=== PATIENT | female | born 1935 | race Caucasian/White ===

== ENCOUNTER 2017-02-11 16:24 | Emergency (ER) | payer MEDICARE ==
[2017-02-11] MEDS ORDERED: Morphine 4 MG/ML VIAL ONE (17:35)
[2017-02-11 17:39] LABS: #Eosinphils 0.1 thou/uL (0.0-0.7); #Lymphocytes 1.7 thou/uL (1.20-3.40); #Monocytes 0.7 thou/uL (0.11-0.59); #Neutrophils 9.4 thou/uL (1.40-6.50); %Basophils 0.2 % (0.0-1.0); %Eosinophils 0.5 % (0.0-10.0); %Lymphocytes 14.2 % (21.0-51.0); %Monocytes 5.6 % (0.0-10.0); Hematocrit 39.9 % (36.0-47.0); Mean Platelet Volume 7.6 fL (7.4-10.4); Red Blood Cell (RBC) Count 3.97 mill/uL (4.20-5.40); White Blood Cell (WBC) Count 11.9 thou/uL (4.8-10.8)
[2017-02-11 18:00] LABS: Anion Gap 17 mmol/L (10-20); BUN (Urea Nitrogen) 24 mg/dL (9.8-20.1); CK (CPK) 93 U/L (29-168); Calc. Creatinine Clearance 0 mL/min (70-130); Calcium 9.8 mg/dL (7.8-10.44); Carbon Dioxide 20 mmol/L (23-31); Chloride 106 mmol/L (98-107); Estimated GFR-MDRD 57
--- NOTE | 2017-02-11 18:35 | RAD ---
RADIOGRAPH RIGHT SHOULDER TWO VIEWS: Date: 02-11-17 Time: 5:24 p.m. History: 81-year-old female status post acute right shoulder trauma from fall. FINDINGS: There is a minimally/mildly displaced fracture of the lateral aspect of the humeral head. There is no dislocation. The right clavicle is intact. There are changes within the thoracic cavity suggestive o f congestive heart failure, including pulmonary vascular engorgement, probable pulmonary edema and ri ght pleural effusion, incompletely evaluated. No dislocation. IMPRESSION: 1. Acute, traumatic, mildly displaced, closed, right humeral head fracture. 2. Congestive heart failure. POS: [facility]
--- NOTE | 2017-02-11 18:45 | CT ---
CT BRAIN NONCONTRAST: HISTORY: 81 year old female status post acute head trauma from fall. FINDINGS: There is no midline shift or any other mass effect. There is no evidence of acute intracranial hemor rhage, large cortical infarct, obstructive hydrocephalus, or extraaxial fluid collection. The calvar ium is intact. There is diffuse parenchymal volume loss. There are low attenuation areas in the whi te matter. These are nonspecific, but in a patient of this age, they are probably chronic ischemic w melvin matter changes due to microvascular atherosclerosis. There is a focal dense superficial soft tis reba swelling of the right frontal scalp. There is a right wall-up mastoidectomy surgical defect. IMPRESSION: 1) No acute intracranial findings. 2) Involutional changes and chronic ischemic white matter changes. 3) Acute, traumatic right frontal scalp contusion. 4) Status post right-sided intact canal wall mastoidectomy. [email or web address] POS: [facility]
== END 2017-02-11 19:12 | disposition home or self-care (01) ==
LOC: ERS 16:24
DX: S42.291A Other displaced fracture of upper end of right humerus, initial encounter for closed fracture (principal); E11.9 Type 2 diabetes mellitus without complications; E03.9 Hypothyroidism, unspecified; M19.90 Unspecified osteoarthritis, unspecified site; Z79.84 Long term (current) use of oral hypoglycemic drugs; Z79.899 Other long term (current) drug therapy; W01.10XA Fall on same level from slipping, tripping and stumbling with subsequent striking against unspecified object, initial encounter
CPT/HCPCS: 70450; 80048; 82550; 85025; 96374; J2270

== ENCOUNTER 2020-07-18 13:34 | Inpatient (IN) | payer MEDICARE ==
[~2020-07-18 13:34] MED LIST: Heparin 1,000 UNITS/ML VIAL ONE
[2020-07-18 14:16] LABS: Hemoglobin 11.4 g/dL (12.0-16.0); Mean Corpuscular HGB CONC 34.1 g/dL (32.0-36.0); Mean Corpuscular Hemoglobin 33.3 pg (27.0-31.0); Mean Corpuscular Volume 97.5 fL (78.0-98.0); Mean Platelet Volume 7.8 fL (7.4-10.4); Platelet Count 612 thou/uL (130-400); RBC Distribution Width 13.9 % (11.5-14.5); Red Blood Cell (RBC) Count 3.43 mill/uL (4.20-5.40); White Blood Cell (WBC) Count 28.4 thou/uL (4.8-10.8)
[2020-07-18 14:35] LABS: Bacteria/HPF 4+ HPF (None Seen); Bilirubin Negative (Negative); Blood, Urine 2+ (Negative); Glucose, Urine (Dipstick) Normal (Negative); Ketone, Urine Negative (Negative); Leukocyte 500 Leu/uL (Negative); Nitrite Negative (Negative); Protein, Urine (Dipstick) 50 mg/dL (Neg-Trace); Specific Gravity, Urine 1.025 (1.002-1.036); WBC/HPF 21-50 HPF (0-3); pH, Urine 5.5 (5.0-9.0)
[2020-07-18 14:36] LABS: ALT (SGPT) 78 U/L (8-55); AST (SGOT) 170 U/L (5-34); Albumin 2.8 g/dL (3.4-4.8); Alkaline Phosphatase 160 U/L (40-110); Anion Gap 21 mmol/L (10-20); BUN (Urea Nitrogen) 47 mg/dL (9.8-20.1); Bilirubin, Total 1.7 mg/dL (0.2-1.2); CK (CPK) 3451 U/L (29-168); Calc. Creatinine Clearance 0 mL/min (70-130); Calcium 8.8 mg/dL (7.8-10.44); Carbon Dioxide 16 mmol/L (23-31); Chloride 105 mmol/L (98-107); Globulin 5.3 g/dL (2.4-3.5); Glucose 97 mg/dL (83-110); Lipase 40 U/L (8-78); Magnesium 1.3 mg/dL (1.6-2.6); Potassium 4.1 mmol/L (3.5-5.1); Protein, Total 8.1 g/dL (5.8-8.1); Sodium 138 mmol/L (136-145)
[2020-07-18 14:39] LABS: Band 39 % (5-11); Lymphocytes 3 % (21-51); MDiff Complete? YES; Monocytes 4 % (0-10); Neutrophil 54 % (42-75)
[2020-07-18 14:49] LABS: Clarity Turbid (Clear); Renal Epithelial 0-3 HPF (None Seen); Transitional Epithelial 0-3 HPF (None Seen)
[2020-07-18 15:02] LABS: CKMB 40.3 ng/mL (0-6.6)
[2020-07-18] MEDS ORDERED: Cefepime 2 GM VIAL ONE (15:24)
[2020-07-18] MEDS ORDERED: Magnesium 2 GM/50 ML BAG (IN WATER) ONE (15:24)
[2020-07-18] MEDS ORDERED: Vancomycin 1 GM/200 ML BAG ONE (16:07)
[2020-07-18 17:42] LABS: Troponin I 0.021 ng/mL (< 0.028)
[2020-07-18] MEDS ORDERED: Metoprolol Tartrate 5 MG/5 ML VIAL IVP PRN (17:44)
[2020-07-18] MEDS ORDERED: Dextrose 50% Abboject 50 ML SYRINGE SLOW IVP PRN (17:52)
[2020-07-18] MEDS ORDERED: Dextrose 5% in Water 1,000 ML IV PRN (17:52)
[2020-07-18 18:36] LABS: SARS-CoV-2 NAA Rapid Test Not Detected (NotDetected)
[2020-07-18] MEDS: Dextrose 5 % And 0.9 % NaCl 1,000 ML IV SCH (20:28)
[2020-07-18] MEDS: Piperacillin/Tazobactam 2.25 GM in Sodium Chloride 0.9% 100 ML IVPB SCH (20:28)
[2020-07-18 21:48] LABS: Anion Gap 19 mmol/L (10-20); BUN (Urea Nitrogen) 46 mg/dL (9.8-20.1); CK (CPK) 2348 U/L (29-168); Calc. Creatinine Clearance 28 mL/min (70-130); Calcium 7.8 mg/dL (7.8-10.44); Carbon Dioxide 14 mmol/L (23-31); Chloride 109 mmol/L (98-107); Glucose 108 mg/dL (83-110); Magnesium 1.8 mg/dL (1.6-2.6); Potassium 3.6 mmol/L (3.5-5.1); Sodium 138 mmol/L (136-145)
[2020-07-18 22:08] LABS: Hemoglobin 9.8 g/dL (12.0-16.0); Mean Corpuscular HGB CONC 33.7 g/dL (32.0-36.0); Mean Corpuscular Hemoglobin 32.9 pg (27.0-31.0); Mean Corpuscular Volume 97.5 fL (78.0-98.0); RBC Distribution Width 13.9 % (11.5-14.5); Red Blood Cell (RBC) Count 2.97 mill/uL (4.20-5.40)
[2020-07-18 22:31] LABS: Band 27 % (5-11); Lymphocytes 8 % (21-51); MDiff Complete? YES; Mean Platelet Volume 7.4 fL (7.4-10.4); Myelocyte 1 % (0-0); Neutrophil 64 % (42-75); Platelet Count 532 thou/uL (130-400); White Blood Cell (WBC) Count 26.2 thou/uL (4.8-10.8)
[2020-07-18 22:56] LABS: Troponin I 0.019 ng/mL (< 0.028)
[2020-07-19] MEDS: Piperacillin/Tazobactam 2.25 GM in Sodium Chloride 0.9% 100 ML IVPB SCH ×4 (02:40→20:25)
[2020-07-19] MEDS: Morphine 2 MG/ML VIAL SLOW IVP PRN (02:49)
[2020-07-19 04:08] LABS: INR-International Normal Ratio 1.3; PTT 42.9 sec (22.9-36.1); Prothrombin Time 16.1 sec (12.0-14.7)
[2020-07-19 04:21] LABS: ALT (SGPT) 63 U/L (8-55); AST (SGOT) 122 U/L (5-34); Albumin 2.3 g/dL (3.4-4.8); Alkaline Phosphatase 135 U/L (40-110); Anion Gap 14 mmol/L (10-20); BUN (Urea Nitrogen) 45 mg/dL (9.8-20.1); Bilirubin, Total 1.4 mg/dL (0.2-1.2); CK (CPK) 1914 U/L (29-168); Calc. Creatinine Clearance 30 mL/min (70-130); Calcium 8.1 mg/dL (7.8-10.44); Carbon Dioxide 16 mmol/L (23-31); Chloride 113 mmol/L (98-107); Globulin 4.2 g/dL (2.4-3.5); Glucose 120 mg/dL (83-110); Potassium 3.3 mmol/L (3.5-5.1); Protein, Total 6.5 g/dL (5.8-8.1); Sodium 140 mmol/L (136-145)
[2020-07-19 05:37] LABS: Band 22 % (5-11); Hemoglobin 9.9 g/dL (12.0-16.0); Lymphocytes 11 % (21-51); MDiff Complete? YES; Mean Corpuscular HGB CONC 32.6 g/dL (32.0-36.0); Mean Corpuscular Hemoglobin 31.8 pg (27.0-31.0); Mean Corpuscular Volume 97.6 fL (78.0-98.0); Mean Platelet Volume 7.5 fL (7.4-10.4); Monocytes 1 % (0-10); Neutrophil 66 % (42-75); Platelet Count 541 thou/uL (130-400); RBC Distribution Width 13.9 % (11.5-14.5); Red Blood Cell (RBC) Count 3.12 mill/uL (4.20-5.40)
[2020-07-19] MEDS: Dextrose 5 % And 0.9 % NaCl 1,000 ML IV SCH ×3 (05:37→22:33)
[2020-07-19] MEDS ORDERED: Midazolam HCl 2 mg/2 ml Vial ONE (09:07)
[2020-07-19] MEDS ORDERED: Fentanyl 100 MCG/2 ML VIAL ONE (09:07)
[2020-07-19] MEDS ORDERED: Sodium Bicarbonate 2.5 MEQ/5 ML VIAL ONE (09:07)
[2020-07-19 13:31] LABS: Body Fluid Source Abscess Fluid
[2020-07-19 13:32] LABS: BF Color Yellow; Clarity Cloudy/Turbid (Clear); Tube # EDTA
[2020-07-19 14:05] LABS: Cell Count Non Hematic 37 %; Lymphocytes 20 %
[2020-07-19] MEDS: HumaLOG 300 UNITS/3 ML VIAL SC PRN (17:17)
[2020-07-19] MEDS ORDERED: Digoxin 0.5 MG/2 ML AMP SLOW IVP SCH ×2 (17:45)
[2020-07-19] MEDS: Sodium Chloride 0.9% 1,000 ML IV SCH (18:16)
[2020-07-19] MEDS: Heparin 5,000 UNITS/ML VIAL SC SCH (20:26)
[2020-07-19 21:01] LABS: Hemoglobin A1c 4.9 % (4.0-6.0)
[2020-07-19 21:10] LABS: Segmented Neutrophils 43 %
[2020-07-20] MEDS: Sodium Chloride 0.9% 1,000 ML IV SCH ×4 (01:47→21:34)
[2020-07-20] MEDS: Piperacillin/Tazobactam 2.25 GM in Sodium Chloride 0.9% 100 ML IVPB SCH ×4 (01:50→20:17)
[2020-07-20 04:38] LABS: Anion Gap 13 mmol/L (10-20); BUN (Urea Nitrogen) 42 mg/dL (9.8-20.1); CK (CPK) 1134 U/L (29-168); Calc. Creatinine Clearance 36 mL/min (70-130); Calcium 7.6 mg/dL (7.8-10.44); Carbon Dioxide 16 mmol/L (23-31); Chloride 115 mmol/L (98-107); Glucose 162 mg/dL (83-110); Potassium 3.4 mmol/L (3.5-5.1); Sodium 141 mmol/L (136-145)
[2020-07-20 04:39] LABS: ALT (SGPT) 58 U/L (8-55); AST (SGOT) 83 U/L (5-34); Albumin 2.1 g/dL (3.4-4.8); Alkaline Phosphatase 119 U/L (40-110); Bilirubin, Direct 0.8 mg/dL (0.1-0.3); Bilirubin, Total 0.9 mg/dL (0.2-1.2); Protein, Total 5.8 g/dL (5.8-8.1)
[2020-07-20 04:47] LABS: Band 11 % (5-11); Eosinophils 1 % (0-10); Hemoglobin 8.8 g/dL (12.0-16.0); Lymphocytes 5 % (21-51); MDiff Complete? YES; Mean Corpuscular HGB CONC 33.2 g/dL (32.0-36.0); Mean Corpuscular Hemoglobin 32.6 pg (27.0-31.0); Mean Corpuscular Volume 98.1 fL (78.0-98.0); Mean Platelet Volume 7.5 fL (7.4-10.4); Monocytes 5 % (0-10); Myelocyte 1 % (0-0); Neutrophil 77 % (42-75); Platelet Count 496 thou/uL (130-400); RBC Distribution Width 14.1 % (11.5-14.5); Red Blood Cell (RBC) Count 2.71 mill/uL (4.20-5.40); White Blood Cell (WBC) Count 16.9 thou/uL (4.8-10.8)
[2020-07-20] MEDS: Digoxin 0.5 MG/2 ML AMP SLOW IVP SCH ×3 (05:55→16:13)
[2020-07-20] MEDS ORDERED: Potassium Chloride 40 MEQ in Sodium Chloride 0.9% 250 ML 250 ML IVPB SCH (08:15)
[2020-07-20] MEDS: Heparin 5,000 UNITS/ML VIAL SC SCH ×3 (10:31→20:22)
[2020-07-20] MEDS: Dextrose 5 % And 0.9 % NaCl 1,000 ML IV SCH (16:11)
[2020-07-20] MEDS: Atorvastatin Calcium 40 MG TAB PO SCH (20:21)
[2020-07-20] MEDS: Metoprolol Tartrate 50 MG TAB PO SCH (20:21)
[2020-07-21] MEDS: Piperacillin/Tazobactam 2.25 GM in Sodium Chloride 0.9% 100 ML IVPB SCH ×4 (02:10→20:05)
[2020-07-21] MEDS: Sodium Chloride 0.9% 1,000 ML IV SCH ×5 (03:20→15:50)
[2020-07-21 03:48] LABS: ALT (SGPT) 66 U/L (8-55); AST (SGOT) 96 U/L (5-34); Albumin 2.1 g/dL (3.4-4.8); Alkaline Phosphatase 118 U/L (40-110); Anion Gap 12 mmol/L (10-20); BUN (Urea Nitrogen) 36 mg/dL (9.8-20.1); Bilirubin, Direct 0.7 mg/dL (0.1-0.3); Bilirubin, Total 0.9 mg/dL (0.2-1.2); CK (CPK) 1491 U/L (29-168); Calc. Creatinine Clearance 46 mL/min (70-130); Calcium 7.9 mg/dL (7.8-10.44); Carbon Dioxide 15 mmol/L (23-31); Cardiac Risk 5.4 (Less than 4.5); Chloride 118 mmol/L (98-107); Cholesterol 91 mg/dl (< 200 Desired); Glucose 113 mg/dL (83-110); HDL Cholesterol 17 mg/dL (>60 Neg Risk); LDL Cholesterol, Calculated 36 mg/dL; Potassium 4.2 mmol/L (3.5-5.1); Protein, Total 5.8 g/dL (5.8-8.1); Sodium 141 mmol/L (136-145); Triglycerides 192 mg/dL (Less than 150)
[2020-07-21 04:00] LABS: Band 11 % (5-11); Hemoglobin 9.5 g/dL (12.0-16.0); Lymphocytes 11 % (21-51); MDiff Complete? YES; Mean Corpuscular HGB CONC 33.3 g/dL (32.0-36.0); Mean Corpuscular Hemoglobin 32.7 pg (27.0-31.0); Mean Corpuscular Volume 98.2 fL (78.0-98.0); Mean Platelet Volume 7.6 fL (7.4-10.4); Monocytes 4 % (0-10); Myelocyte 1 % (0-0); Neutrophil 73 % (42-75); Nucleated RBC 2 % (0); Platelet Count 504 thou/uL (130-400); RBC Distribution Width 14.2 % (11.5-14.5); Red Blood Cell (RBC) Count 2.91 mill/uL (4.20-5.40); White Blood Cell (WBC) Count 14.8 thou/uL (4.8-10.8)
[2020-07-21] MEDS: Levothyroxine Sodium 75 MCG TAB PO SCH (06:36)
[2020-07-21] MEDS: Losartan 25 MG TAB PO SCH (09:04)
[2020-07-21] MEDS: Digoxin 0.125 MG TAB PO SCH (09:04)
[2020-07-21] MEDS: Saccharomyces boulardii 250 MG CAP PO SCH (09:05)
[2020-07-21] MEDS: Metoprolol Tartrate 50 MG TAB PO SCH ×2 (09:05→20:06)
[2020-07-21] MEDS: Gemfibrozil 600 MG TAB PO SCH (09:05)
[2020-07-21] MEDS: Heparin 5,000 UNITS/ML VIAL SC SCH ×3 (09:05→20:06)
[2020-07-21] MEDS: Aspirin 325 MG TAB PO SCH (09:05)
[2020-07-21] MEDS: Sodium Chloride 0.45% 1,000 ML IV SCH (17:30)
[2020-07-21] MEDS: Atorvastatin Calcium 40 MG TAB PO SCH (20:05)
[2020-07-22] MEDS: Piperacillin/Tazobactam 2.25 GM in Sodium Chloride 0.9% 100 ML IVPB SCH ×2 (02:01→08:10)
[2020-07-22] MEDS: Sodium Chloride 0.45% 1,000 ML IV SCH ×3 (02:01→18:42)
[2020-07-22] MEDS: Levothyroxine Sodium 75 MCG TAB PO SCH (05:36)
[2020-07-22 06:43] LABS: Digoxin 1.04 ng/mL (0.8-2.0)
[2020-07-22 06:46] LABS: Anion Gap 13 mmol/L (10-20); BUN (Urea Nitrogen) 26 mg/dL (9.8-20.1); CK (CPK) 1188 U/L (29-168); Calc. Creatinine Clearance 62 mL/min (70-130); Carbon Dioxide 13 mmol/L (23-31); Chloride 117 mmol/L (98-107); Glucose 108 mg/dL (83-110); Sodium 139 mmol/L (136-145)
[2020-07-22 06:47] LABS: ALT (SGPT) 74 U/L (8-55); AST (SGOT) 96 U/L (5-34); Alkaline Phosphatase 121 U/L (40-110); Bilirubin, Direct 0.5 mg/dL (0.1-0.3); Bilirubin, Total 0.9 mg/dL (0.2-1.2); Protein, Total 5.9 g/dL (5.8-8.1)
[2020-07-22 07:38] LABS: Band 4 % (5-11); Hemoglobin 9.8 g/dL (12.0-16.0); Lymphocytes 13 % (21-51); MDiff Complete? YES; Mean Corpuscular HGB CONC 32.3 g/dL (32.0-36.0); Mean Corpuscular Hemoglobin 32.1 pg (27.0-31.0); Mean Corpuscular Volume 99.4 fL (78.0-98.0); Mean Platelet Volume 7.5 fL (7.4-10.4); Monocytes 6 % (0-10); Myelocyte 1 % (0-0); Neutrophil 76 % (42-75); Platelet Count 545 thou/uL (130-400); Platelet Morphology Comment Appears Increased; Polychromasia SLIGHT = 2-3 cells (100X) (0-2/hpf); RBC Distribution Width 14.3 % (11.5-14.5); Red Blood Cell (RBC) Count 3.06 mill/uL (4.20-5.40); White Blood Cell (WBC) Count 15.9 thou/uL (4.8-10.8)
[2020-07-22] MEDS: Saccharomyces boulardii 250 MG CAP PO SCH (08:31)
[2020-07-22] MEDS: Aspirin 325 MG TAB PO SCH (08:31)
[2020-07-22] MEDS: Losartan 25 MG TAB PO SCH (08:31)
[2020-07-22] MEDS: Digoxin 0.125 MG TAB PO SCH (08:31)
[2020-07-22] MEDS: Gemfibrozil 600 MG TAB PO SCH (08:31)
[2020-07-22] MEDS: Acetaminophen 325 MG TAB PO PRN (08:31)
[2020-07-22] MEDS: Heparin 5,000 UNITS/ML VIAL SC SCH (08:32)
[2020-07-22] MEDS: MEROPENEM 1 GM/50 ML 1 GM in Premix Bag 1 BAG IVPB SCH ×2 (08:32→16:22)
[2020-07-22] MEDS: Metoprolol Tartrate 50 MG TAB PO SCH ×2 (08:32→20:04)
[2020-07-22] MEDS: Apixaban 5 MG TAB PO SCH ×2 (09:46→20:04)
[2020-07-22] MEDS: traMADol HCl 50 MG TAB PO PRN ×2 (12:31→20:05)
[2020-07-23] MEDS: MEROPENEM 1 GM/50 ML 1 GM in Premix Bag 1 BAG IVPB SCH ×3 (01:18→16:54)
[2020-07-23] MEDS: Sodium Chloride 0.45% 1,000 ML IV SCH ×3 (03:04→16:54)
[2020-07-23] MEDS: Levothyroxine Sodium 75 MCG TAB PO SCH (05:36)
[2020-07-23] MEDS: Losartan 25 MG TAB PO SCH (08:57)
[2020-07-23] MEDS: ALPRAZolam 0.25 MG TAB PO PRN ×2 (08:57→20:45)
[2020-07-23] MEDS: Gemfibrozil 600 MG TAB PO SCH (08:57)
[2020-07-23] MEDS: Aspirin 81 mg Enteric Coated Tablet PO SCH (08:57)
[2020-07-23] MEDS: Saccharomyces boulardii 250 MG CAP PO SCH (08:57)
[2020-07-23] MEDS: Metoprolol Tartrate 50 MG TAB PO SCH ×2 (08:57→20:44)
[2020-07-23] MEDS: traMADol HCl 50 MG TAB PO PRN ×2 (08:58→20:45)
[2020-07-23] MEDS: Apixaban 5 MG TAB PO SCH ×2 (08:58→20:44)
[2020-07-23] MEDS: HumaLOG 300 UNITS/3 ML VIAL SC PRN (16:55)
[2020-07-24] MEDS: Sodium Chloride 0.45% 1,000 ML IV SCH ×3 (01:22→20:33)
[2020-07-24] MEDS: MEROPENEM 1 GM/50 ML 1 GM in Premix Bag 1 BAG IVPB SCH ×3 (01:22→17:45)
[2020-07-24] MEDS: Levothyroxine Sodium 75 MCG TAB PO SCH (05:08)
[2020-07-24] MEDS: Acetaminophen 325 MG TAB PO PRN (05:09)
[2020-07-24] MEDS: Aspirin 81 mg Enteric Coated Tablet PO SCH (08:32)
[2020-07-24] MEDS: Metoprolol Tartrate 50 MG TAB PO SCH ×2 (08:32→20:26)
[2020-07-24] MEDS: Losartan 25 MG TAB PO SCH (08:32)
[2020-07-24] MEDS: traMADol HCl 50 MG TAB PO PRN (08:32)
[2020-07-24] MEDS: ALPRAZolam 0.25 MG TAB PO PRN (08:32)
[2020-07-24] MEDS: Saccharomyces boulardii 250 MG CAP PO SCH (08:32)
[2020-07-24] MEDS: Gemfibrozil 600 MG TAB PO SCH (08:33)
[2020-07-24] MEDS: Apixaban 5 MG TAB PO SCH (08:33)
[2020-07-24] MEDS: Enoxaparin Sodium 40 MG/0.4 ML SYRINGE SC SCH (20:26)
[2020-07-25] MEDS: MEROPENEM 1 GM/50 ML 1 GM in Premix Bag 1 BAG IVPB SCH ×3 (00:46→17:09)
[2020-07-25] MEDS: Levothyroxine Sodium 75 MCG TAB PO SCH (06:05)
[2020-07-25] MEDS: Aspirin 81 mg Enteric Coated Tablet PO SCH (08:34)
[2020-07-25] MEDS: ALPRAZolam 0.25 MG TAB PO PRN (08:34)
[2020-07-25] MEDS: Saccharomyces boulardii 250 MG CAP PO SCH (08:34)
[2020-07-25] MEDS: Sodium Chloride 0.45% 1,000 ML IV SCH ×2 (08:34→12:30)
[2020-07-25] MEDS: Metoprolol Tartrate 50 MG TAB PO SCH ×2 (08:35→21:37)
[2020-07-25] MEDS: traMADol HCl 50 MG TAB PO PRN ×2 (08:35→21:36)
[2020-07-25] MEDS: Losartan 25 MG TAB PO SCH (08:35)
[2020-07-25] MEDS: Gemfibrozil 600 MG TAB PO SCH (08:35)
[2020-07-25 08:56] LABS: Hemoglobin 10.2 g/dL (12.0-16.0); Mean Corpuscular HGB CONC 32.7 g/dL (32.0-36.0); Mean Corpuscular Hemoglobin 32.2 pg (27.0-31.0); Mean Corpuscular Volume 98.6 fL (78.0-98.0); RBC Distribution Width 14.8 % (11.5-14.5); Red Blood Cell (RBC) Count 3.18 mill/uL (4.20-5.40)
[2020-07-25 09:07] LABS: ALT (SGPT) 88 U/L (8-55); AST (SGOT) 104 U/L (5-34); Albumin 2.1 g/dL (3.4-4.8); Alkaline Phosphatase 122 U/L (40-110); Anion Gap 10 mmol/L (10-20); BUN (Urea Nitrogen) 26 mg/dL (9.8-20.1); Bilirubin, Total 0.7 mg/dL (0.2-1.2); Calc. Creatinine Clearance 75 mL/min (70-130); Calcium 8.1 mg/dL (7.8-10.44); Carbon Dioxide 19 mmol/L (23-31); Chloride 110 mmol/L (98-107); Globulin 4.1 g/dL (2.4-3.5); Glucose 120 mg/dL (83-110); Protein, Total 6.2 g/dL (5.8-8.1); Sodium 135 mmol/L (136-145)
[2020-07-25 09:33] LABS: Anisocytosis SLIGHT = 6-15 cells (100X) (0-5/hpf); Band 4 % (5-11); Lymphocytes 11 % (21-51); MDiff Complete? YES; Mean Platelet Volume 7.5 fL (7.4-10.4); Monocytes 7 % (0-10); Neutrophil 77 % (42-75); Platelet Count 562 thou/uL (130-400); Platelet Morphology Comment Appears Increased; White Blood Cell (WBC) Count 22.4 thou/uL (4.8-10.8)
[2020-07-25] MEDS: Enoxaparin Sodium 40 MG/0.4 ML SYRINGE SC SCH (21:37)
[2020-07-26] MEDS: Sodium Chloride 0.45% 1,000 ML IV SCH ×3 (00:33→15:44)
[2020-07-26] MEDS: MEROPENEM 1 GM/50 ML 1 GM in Premix Bag 1 BAG IVPB SCH ×3 (00:33→15:43)
[2020-07-26] MEDS: Levothyroxine Sodium 75 MCG TAB PO SCH (05:54)
[2020-07-26 07:50] LABS: #Eosinphils 0.1 thou/uL (0.0-0.7); #Monocytes 1.2 thou/uL (0.11-0.59); #Neutrophils 13.6 thou/uL (1.40-6.50); %Basophils 0.2 % (0.0-1.0); %Eosinophils 0.7 % (0.0-10.0); %Lymphocytes 11.5 % (21.0-51.0); %Monocytes 7.1 % (0.0-10.0); %Neutrophils 80.4 % (42.0-75.0); Hemoglobin 9.9 g/dL (12.0-16.0); Mean Corpuscular HGB CONC 32.3 g/dL (32.0-36.0); Mean Corpuscular Hemoglobin 31.9 pg (27.0-31.0); Mean Corpuscular Volume 98.8 fL (78.0-98.0); Mean Platelet Volume 7.7 fL (7.4-10.4); Platelet Count 533 thou/uL (130-400); RBC Distribution Width 15.3 % (11.5-14.5); White Blood Cell (WBC) Count 16.9 thou/uL (4.8-10.8)
[2020-07-26] MEDS: Aspirin 81 mg Enteric Coated Tablet PO SCH (08:09)
[2020-07-26 08:12] LABS: ALT (SGPT) 89 U/L (8-55); AST (SGOT) 94 U/L (5-34); Alkaline Phosphatase 121 U/L (40-110); Anion Gap 12 mmol/L (10-20); BUN (Urea Nitrogen) 25 mg/dL (9.8-20.1); Bilirubin, Total 0.6 mg/dL (0.2-1.2); Calc. Creatinine Clearance 68 mL/min (70-130); Calcium 8.1 mg/dL (7.8-10.44); Carbon Dioxide 18 mmol/L (23-31); Chloride 107 mmol/L (98-107); Globulin 4.3 g/dL (2.4-3.5); Glucose 108 mg/dL (83-110); Protein, Total 6.3 g/dL (5.8-8.1); Sodium 133 mmol/L (136-145)
[2020-07-26 08:24] LABS: INR-International Normal Ratio 1.2; Prothrombin Time 15.5 sec (12.0-14.7)
[2020-07-26] MEDS: Metoprolol Tartrate 50 MG TAB PO SCH ×2 (08:27→21:47)
[2020-07-26] MEDS: Saccharomyces boulardii 250 MG CAP PO SCH (08:27)
[2020-07-26] MEDS: Gemfibrozil 600 MG TAB PO SCH (08:28)
[2020-07-26] MEDS: Losartan 25 MG TAB PO SCH (08:28)
[2020-07-26] MEDS: traMADol HCl 50 MG TAB PO PRN ×2 (08:30→16:55)
[2020-07-26 13:45] LABS: INR-International Normal Ratio 1.3; PTT 41.3 sec (22.9-36.1); Prothrombin Time 15.9 sec (12.0-14.7)
[2020-07-26] MEDS: Piperacillin/Tazobactam 4.5 GM in Sodium Chloride 0.9% 100 ML IVPB SCH (17:46)
[2020-07-26] MEDS: Enoxaparin Sodium 40 MG/0.4 ML SYRINGE SC SCH (21:46)
[2020-07-27] MEDS: Piperacillin/Tazobactam 4.5 GM in Sodium Chloride 0.9% 100 ML IVPB SCH ×5 (00:42→22:53)
[2020-07-27] MEDS: traMADol HCl 50 MG TAB PO PRN (02:45)
[2020-07-27 06:31] LABS: #Eosinphils 0.1 thou/uL (0.0-0.7); #Lymphocytes 1.9 thou/uL (1.20-3.40); #Monocytes 1.1 thou/uL (0.11-0.59); #Neutrophils 11.8 thou/uL (1.40-6.50); %Basophils 0.2 % (0.0-1.0); %Lymphocytes 12.4 % (21.0-51.0); %Monocytes 7.6 % (0.0-10.0); %Neutrophils 78.8 % (42.0-75.0); Hemoglobin 9.2 g/dL (12.0-16.0); Mean Corpuscular HGB CONC 32.9 g/dL (32.0-36.0); Mean Corpuscular Hemoglobin 32.4 pg (27.0-31.0); Mean Corpuscular Volume 98.3 fL (78.0-98.0); Mean Platelet Volume 7.5 fL (7.4-10.4); Platelet Count 499 thou/uL (130-400); RBC Distribution Width 15.6 % (11.5-14.5); Red Blood Cell (RBC) Count 2.85 mill/uL (4.20-5.40)
[2020-07-27] MEDS: Levothyroxine Sodium 75 MCG TAB PO SCH (06:32)
[2020-07-27] MEDS: Sodium Chloride 0.45% 1,000 ML IV SCH ×3 (06:38→22:53)
[2020-07-27 06:51] LABS: ALT (SGPT) 85 U/L (8-55); AST (SGOT) 88 U/L (5-34); Albumin 2.1 g/dL (3.4-4.8); Alkaline Phosphatase 121 U/L (40-110); Anion Gap 11 mmol/L (10-20); BUN (Urea Nitrogen) 25 mg/dL (9.8-20.1); Bilirubin, Total 0.6 mg/dL (0.2-1.2); Calc. Creatinine Clearance 69 mL/min (70-130); Calcium 7.9 mg/dL (7.8-10.44); Carbon Dioxide 20 mmol/L (23-31); Chloride 109 mmol/L (98-107); Glucose 88 mg/dL (83-110); Potassium 4.2 mmol/L (3.5-5.1); Protein, Total 6.1 g/dL (5.8-8.1); Sodium 136 mmol/L (136-145)
[2020-07-27] MEDS: Gemfibrozil 600 MG TAB PO SCH (09:01)
[2020-07-27] MEDS: Losartan 25 MG TAB PO SCH (09:01)
[2020-07-27] MEDS: Metoprolol Tartrate 50 MG TAB PO SCH ×2 (09:01→21:00)
[2020-07-27] MEDS: Saccharomyces boulardii 250 MG CAP PO SCH (09:01)
[2020-07-27] MEDS: Aspirin 81 mg Enteric Coated Tablet PO SCH (09:02)
[2020-07-27] MEDS ORDERED: Midazolam HCl 2 mg/2 ml Vial ONE (13:00)
[2020-07-27] MEDS ORDERED: Sodium Bicarbonate 2.5 MEQ/5 ML VIAL ONE (13:00)
[2020-07-27] MEDS ORDERED: Fentanyl 100 MCG/2 ML VIAL ONE (13:13)
[2020-07-27 14:52] LABS: BF Color Gray; Body Fluid Source Abscess Fluid; Clarity Cloudy/Turbid (Clear); Tube # EDTA
[2020-07-27] MEDS: Enoxaparin Sodium 40 MG/0.4 ML SYRINGE SC SCH (21:00)
[2020-07-27] MEDS: Loperamide HCl 2 MG CAP PO PRN (22:53)
[2020-07-28] MEDS: Loperamide HCl 2 MG CAP PO PRN ×2 (00:52→08:24)
[2020-07-28 06:17] LABS: #Eosinphils 0.2 thou/uL (0.0-0.7); #Lymphocytes 1.5 thou/uL (1.20-3.40); #Monocytes 0.9 thou/uL (0.11-0.59); #Neutrophils 7.2 thou/uL (1.40-6.50); %Lymphocytes 15.3 % (21.0-51.0); %Monocytes 9.4 % (0.0-10.0); %Neutrophils 73.2 % (42.0-75.0); Mean Corpuscular HGB CONC 31.5 g/dL (32.0-36.0); Mean Corpuscular Hemoglobin 31.2 pg (27.0-31.0); Mean Corpuscular Volume 99.1 fL (78.0-98.0); Mean Platelet Volume 7.6 fL (7.4-10.4); Platelet Count 495 thou/uL (130-400); Red Blood Cell (RBC) Count 2.88 mill/uL (4.20-5.40); White Blood Cell (WBC) Count 9.9 thou/uL (4.8-10.8)
[2020-07-28] MEDS: Levothyroxine Sodium 75 MCG TAB PO SCH (06:23)
[2020-07-28] MEDS: Piperacillin/Tazobactam 4.5 GM in Sodium Chloride 0.9% 100 ML IVPB SCH ×3 (06:24→18:06)
[2020-07-28 06:38] LABS: ALT (SGPT) 86 U/L (8-55); AST (SGOT) 91 U/L (5-34); Albumin 1.9 g/dL (3.4-4.8); Alkaline Phosphatase 116 U/L (40-110); Anion Gap 12 mmol/L (10-20); BUN (Urea Nitrogen) 21 mg/dL (9.8-20.1); Bilirubin, Total 0.6 mg/dL (0.2-1.2); Calc. Creatinine Clearance 71 mL/min (70-130); Calcium 7.7 mg/dL (7.8-10.44); Carbon Dioxide 17 mmol/L (23-31); Chloride 111 mmol/L (98-107); Glucose 89 mg/dL (83-110); Protein, Total 5.9 g/dL (5.8-8.1); Sodium 136 mmol/L (136-145)
[2020-07-28] MEDS: Losartan 25 MG TAB PO SCH (08:23)
[2020-07-28] MEDS: Gemfibrozil 600 MG TAB PO SCH (08:24)
[2020-07-28] MEDS: Metoprolol Tartrate 50 MG TAB PO SCH ×2 (08:24→21:23)
[2020-07-28] MEDS: Saccharomyces boulardii 250 MG CAP PO SCH (08:24)
[2020-07-28] MEDS: Aspirin 81 mg Enteric Coated Tablet PO SCH (08:24)
[2020-07-28] MEDS: Micafungin 100 MG in Sodium Chloride 0.9% 100 ML IVPB SCH (08:25)
[2020-07-28] MEDS: Sodium Chloride 0.45% 1,000 ML IV SCH ×3 (08:28→21:22)
[2020-07-28 11:12] VITALS: BMI 36.8
[2020-07-28] MEDS: Enoxaparin Sodium 40 MG/0.4 ML SYRINGE SC SCH (21:23)
[2020-07-29] MEDS: Piperacillin/Tazobactam 4.5 GM in Sodium Chloride 0.9% 100 ML IVPB SCH ×5 (00:59→23:22)
[2020-07-29] MEDS: ALPRAZolam 0.25 MG TAB PO PRN (01:04)
[2020-07-29] MEDS: Levothyroxine Sodium 75 MCG TAB PO SCH (05:30)
[2020-07-29] MEDS: Sodium Chloride 0.45% 1,000 ML IV SCH ×3 (05:30→23:26)
[2020-07-29 06:14] LABS: #Basophils 0.1 thou/uL (0.0-0.2); #Eosinphils 0.2 thou/uL (0.0-0.7); #Lymphocytes 1.5 thou/uL (1.20-3.40); #Monocytes 0.7 thou/uL (0.11-0.59); #Neutrophils 5.2 thou/uL (1.40-6.50); %Basophils 0.7 % (0.0-1.0); %Eosinophils 2.1 % (0.0-10.0); %Lymphocytes 19.9 % (21.0-51.0); %Monocytes 8.6 % (0.0-10.0); %Neutrophils 68.8 % (42.0-75.0); Hemoglobin 9.6 g/dL (12.0-16.0); Mean Corpuscular HGB CONC 31.2 g/dL (32.0-36.0); Mean Corpuscular Hemoglobin 30.9 pg (27.0-31.0); Mean Corpuscular Volume 99.1 fL (78.0-98.0); Mean Platelet Volume 7.5 fL (7.4-10.4); Platelet Count 528 thou/uL (130-400); RBC Distribution Width 15.8 % (11.5-14.5); White Blood Cell (WBC) Count 7.5 thou/uL (4.8-10.8)
[2020-07-29 06:34] LABS: ALT (SGPT) 80 U/L (8-55); AST (SGOT) 75 U/L (5-34); Albumin 1.9 g/dL (3.4-4.8); Alkaline Phosphatase 111 U/L (40-110); Anion Gap 9 mmol/L (10-20); BUN (Urea Nitrogen) 16 mg/dL (9.8-20.1); Bilirubin, Total 0.5 mg/dL (0.2-1.2); Calc. Creatinine Clearance 72 mL/min (70-130); Calcium 7.6 mg/dL (7.8-10.44); Carbon Dioxide 19 mmol/L (23-31); Chloride 113 mmol/L (98-107); Glucose 98 mg/dL (83-110); Potassium 3.8 mmol/L (3.5-5.1); Protein, Total 5.9 g/dL (5.8-8.1); Sodium 137 mmol/L (136-145)
[2020-07-29] MEDS: Aspirin 81 mg Enteric Coated Tablet PO SCH (08:47)
[2020-07-29] MEDS: Metoprolol Tartrate 50 MG TAB PO SCH ×2 (08:47→20:54)
[2020-07-29] MEDS: Gemfibrozil 600 MG TAB PO SCH (08:47)
[2020-07-29] MEDS: Saccharomyces boulardii 250 MG CAP PO SCH (08:47)
[2020-07-29] MEDS: Micafungin 100 MG in Sodium Chloride 0.9% 100 ML IVPB SCH (08:47)
[2020-07-29] MEDS: Losartan 25 MG TAB PO SCH (08:47)
[2020-07-29] MEDS: Enoxaparin Sodium 40 MG/0.4 ML SYRINGE SC SCH (20:55)
[2020-07-29] MEDS: traMADol HCl 50 MG TAB PO PRN (23:22)
[2020-07-30 05:48] LABS: #Eosinphils 0.1 thou/uL (0.0-0.7); #Lymphocytes 1.4 thou/uL (1.20-3.40); #Monocytes 0.7 thou/uL (0.11-0.59); #Neutrophils 4.2 thou/uL (1.40-6.50); %Basophils 0.5 % (0.0-1.0); %Eosinophils 1.9 % (0.0-10.0); %Monocytes 10.7 % (0.0-10.0); %Neutrophils 64.9 % (42.0-75.0); Hemoglobin 8.8 g/dL (12.0-16.0); Mean Corpuscular HGB CONC 32.7 g/dL (32.0-36.0); Mean Corpuscular Hemoglobin 32.7 pg (27.0-31.0); Mean Corpuscular Volume 99.9 fL (78.0-98.0); Mean Platelet Volume 7.2 fL (7.4-10.4); Platelet Count 488 thou/uL (130-400); RBC Distribution Width 15.8 % (11.5-14.5); Red Blood Cell (RBC) Count 2.68 mill/uL (4.20-5.40); White Blood Cell (WBC) Count 6.4 thou/uL (4.8-10.8)
[2020-07-30] MEDS: Piperacillin/Tazobactam 4.5 GM in Sodium Chloride 0.9% 100 ML IVPB SCH ×4 (06:01→23:50)
[2020-07-30] MEDS: Levothyroxine Sodium 75 MCG TAB PO SCH (06:02)
[2020-07-30 06:09] LABS: ALT (SGPT) 64 U/L (8-55); AST (SGOT) 60 U/L (5-34); Albumin 1.8 g/dL (3.4-4.8); Alkaline Phosphatase 99 U/L (40-110); Anion Gap 10 mmol/L (10-20); BUN (Urea Nitrogen) 12 mg/dL (9.8-20.1); Bilirubin, Total 0.4 mg/dL (0.2-1.2); Calc. Creatinine Clearance 76 mL/min (70-130); Calcium 7.3 mg/dL (7.8-10.44); Carbon Dioxide 20 mmol/L (23-31); Chloride 113 mmol/L (98-107); Globulin 3.6 g/dL (2.4-3.5); Glucose 97 mg/dL (83-110); Potassium 3.8 mmol/L (3.5-5.1); Protein, Total 5.4 g/dL (5.8-8.1); Sodium 139 mmol/L (136-145)
[2020-07-30] MEDS: Aspirin 81 mg Enteric Coated Tablet PO SCH (09:52)
[2020-07-30] MEDS: Gemfibrozil 600 MG TAB PO SCH (09:52)
[2020-07-30] MEDS: Saccharomyces boulardii 250 MG CAP PO SCH (09:52)
[2020-07-30] MEDS: Micafungin 100 MG in Sodium Chloride 0.9% 100 ML IVPB SCH (09:52)
[2020-07-30] MEDS: Metoprolol Tartrate 50 MG TAB PO SCH ×2 (09:52→20:27)
[2020-07-30] MEDS: Sodium Chloride 0.45% 1,000 ML IV SCH ×2 (09:53→23:45)
[2020-07-30] MEDS: Losartan 25 MG TAB PO SCH (09:54)
[2020-07-30] MEDS: traMADol HCl 50 MG TAB PO PRN (19:32)
[2020-07-30] MEDS: Acetaminophen 325 MG TAB PO PRN (19:34)
[2020-07-30] MEDS: Enoxaparin Sodium 40 MG/0.4 ML SYRINGE SC SCH (20:27)
[2020-07-30] MEDS: ALPRAZolam 0.25 MG TAB PO PRN (20:27)
[2020-07-31] MEDS: Piperacillin/Tazobactam 4.5 GM in Sodium Chloride 0.9% 100 ML IVPB SCH ×4 (05:07→21:46)
[2020-07-31] MEDS: Levothyroxine Sodium 75 MCG TAB PO SCH (05:09)
[2020-07-31] MEDS: Gemfibrozil 600 MG TAB PO SCH (10:04)
[2020-07-31] MEDS: Saccharomyces boulardii 250 MG CAP PO SCH (10:04)
[2020-07-31] MEDS: Losartan 25 MG TAB PO SCH (10:04)
[2020-07-31] MEDS: Metoprolol Tartrate 50 MG TAB PO SCH ×2 (10:05→21:11)
[2020-07-31] MEDS: Aspirin 81 mg Enteric Coated Tablet PO SCH (10:05)
[2020-07-31] MEDS: Micafungin 100 MG in Sodium Chloride 0.9% 100 ML IVPB SCH (10:17)
[2020-07-31] MEDS: Sodium Chloride 0.45% 1,000 ML IV SCH (10:18)
[2020-07-31] MEDS: Enoxaparin Sodium 40 MG/0.4 ML SYRINGE SC SCH (21:11)
[2020-07-31] MEDS: traMADol HCl 50 MG TAB PO PRN (21:11)
[2020-07-31] MEDS: Acetaminophen 325 MG TAB PO PRN (21:12)
[2020-08-01] MEDS: Piperacillin/Tazobactam 4.5 GM in Sodium Chloride 0.9% 100 ML IVPB SCH ×4 (03:23→23:31)
[2020-08-01] MEDS: Levothyroxine Sodium 75 MCG TAB PO SCH (05:05)
[2020-08-01 06:15] LABS: #Basophils 0.1 thou/uL (0.0-0.2); #Eosinphils 0.2 thou/uL (0.0-0.7); #Lymphocytes 1.5 thou/uL (1.20-3.40); #Monocytes 0.8 thou/uL (0.11-0.59); #Neutrophils 6.4 thou/uL (1.40-6.50); %Basophils 0.6 % (0.0-1.0); %Eosinophils 1.8 % (0.0-10.0); %Lymphocytes 17.1 % (21.0-51.0); %Monocytes 8.6 % (0.0-10.0); %Neutrophils 71.9 % (42.0-75.0); Hemoglobin 7.9 g/dL (12.0-16.0); Mean Corpuscular HGB CONC 32.4 g/dL (32.0-36.0); Mean Corpuscular Hemoglobin 32.6 pg (27.0-31.0); Mean Platelet Volume 7.2 fL (7.4-10.4); Platelet Count 433 thou/uL (130-400); Red Blood Cell (RBC) Count 2.42 mill/uL (4.20-5.40); White Blood Cell (WBC) Count 8.9 thou/uL (4.8-10.8)
[2020-08-01 06:39] LABS: Anion Gap 10 mmol/L (10-20); BUN (Urea Nitrogen) 13 mg/dL (9.8-20.1); Calc. Creatinine Clearance 78 mL/min (70-130); Calcium 7.1 mg/dL (7.8-10.44); Carbon Dioxide 20 mmol/L (23-31); Chloride 116 mmol/L (98-107); Glucose 125 mg/dL (83-110); Potassium 4.3 mmol/L (3.5-5.1); Sodium 142 mmol/L (136-145)
[2020-08-01] MEDS ORDERED: Sodium Chloride 0.9% 1,000 ML IV SCH (07:30)
[2020-08-01 07:31] LABS: Hemoglobin 7.2 g/dL (12.0-16.0)
[2020-08-01] MEDS ORDERED: Iopamidol-370 76% 500 ML 1 ML ONE (08:50)
[2020-08-01] MEDS ORDERED: Octreotide Acetate 1,250 MCG in Sodium Chloride 0.9% 250 ML 250 ML IVPB SCH (09:15)
[2020-08-01] MEDS ORDERED: Pantoprazole 80 MG in Sodium Chloride 0.9% 100 ML IVPB SCH (09:15)
[2020-08-01] MEDS: Losartan 25 MG TAB PO SCH (09:59)
[2020-08-01] MEDS: Metoprolol Tartrate 50 MG TAB PO SCH ×2 (09:59→20:53)
[2020-08-01] MEDS: Gemfibrozil 600 MG TAB PO SCH (10:03)
[2020-08-01] MEDS: Saccharomyces boulardii 250 MG CAP PO SCH (10:03)
[2020-08-01] MEDS: Micafungin 100 MG in Sodium Chloride 0.9% 100 ML IVPB SCH (11:47)
[2020-08-01 19:29] LABS: #Basophils 0.1 thou/uL (0.0-0.2); #Eosinphils 0.1 thou/uL (0.0-0.7); #Lymphocytes 2.1 thou/uL (1.20-3.40); #Monocytes 0.7 thou/uL (0.11-0.59); #Neutrophils 7.9 thou/uL (1.40-6.50); %Basophils 0.8 % (0.0-1.0); %Eosinophils 0.9 % (0.0-10.0); %Lymphocytes 18.8 % (21.0-51.0); %Monocytes 6.7 % (0.0-10.0); %Neutrophils 72.8 % (42.0-75.0); Hemoglobin 9.7 g/dL (12.0-16.0); Mean Corpuscular HGB CONC 33.3 g/dL (32.0-36.0); Mean Corpuscular Hemoglobin 31.5 pg (27.0-31.0); Mean Corpuscular Volume 94.6 fL (78.0-98.0); Mean Platelet Volume 7.3 fL (7.4-10.4); Platelet Count 387 thou/uL (130-400); RBC Distribution Width 18.4 % (11.5-14.5); Red Blood Cell (RBC) Count 3.07 mill/uL (4.20-5.40); White Blood Cell (WBC) Count 10.9 thou/uL (4.8-10.8)
[2020-08-01] MEDS: Aspirin 81 mg Enteric Coated Tablet PO SCH (19:47)
[2020-08-01] MEDS: Pantoprazole 40 MG VIAL IVP SCH (20:45)
[2020-08-02] MEDS: Piperacillin/Tazobactam 4.5 GM in Sodium Chloride 0.9% 100 ML IVPB SCH ×4 (04:50→21:04)
[2020-08-02] MEDS: Levothyroxine Sodium 75 MCG TAB PO SCH (05:02)
[2020-08-02 05:09] LABS: #Basophils 0.1 thou/uL (0.0-0.2); #Eosinphils 0.3 thou/uL (0.0-0.7); #Lymphocytes 2.1 thou/uL (1.20-3.40); #Monocytes 0.7 thou/uL (0.11-0.59); #Neutrophils 5.3 thou/uL (1.40-6.50); %Basophils 0.9 % (0.0-1.0); %Eosinophils 3.3 % (0.0-10.0); %Lymphocytes 24.4 % (21.0-51.0); %Monocytes 8.3 % (0.0-10.0); %Neutrophils 63.1 % (42.0-75.0); Hemoglobin 8.8 g/dL (12.0-16.0); Mean Corpuscular HGB CONC 32.4 g/dL (32.0-36.0); Mean Corpuscular Hemoglobin 30.5 pg (27.0-31.0); Mean Platelet Volume 7.4 fL (7.4-10.4); Platelet Count 348 thou/uL (130-400); RBC Distribution Width 18.9 % (11.5-14.5); Red Blood Cell (RBC) Count 2.89 mill/uL (4.20-5.40); White Blood Cell (WBC) Count 8.5 thou/uL (4.8-10.8)
[2020-08-02 05:39] LABS: Anion Gap 8 mmol/L (10-20); BUN (Urea Nitrogen) 14 mg/dL (9.8-20.1); Calc. Creatinine Clearance 79 mL/min (70-130); Calcium 7.4 mg/dL (7.8-10.44); Carbon Dioxide 22 mmol/L (23-31); Chloride 114 mmol/L (98-107); Glucose 118 mg/dL (83-110); Potassium 3.8 mmol/L (3.5-5.1); Sodium 140 mmol/L (136-145)
[2020-08-02] MEDS: Micafungin 100 MG in Sodium Chloride 0.9% 100 ML IVPB SCH (08:54)
[2020-08-02] MEDS: Metoprolol Tartrate 50 MG TAB PO SCH ×2 (08:55→20:58)
[2020-08-02] MEDS: Losartan 25 MG TAB PO SCH (08:55)
[2020-08-02] MEDS: Saccharomyces boulardii 250 MG CAP PO SCH (08:55)
[2020-08-02] MEDS: Pantoprazole 40 MG VIAL IVP SCH ×2 (08:55→20:58)
[2020-08-02] MEDS: Gemfibrozil 600 MG TAB PO SCH (08:55)
[2020-08-02] MEDS: HumaLOG 300 UNITS/3 ML VIAL SC PRN (17:08)
[2020-08-03] MEDS: Piperacillin/Tazobactam 4.5 GM in Sodium Chloride 0.9% 100 ML IVPB SCH ×4 (03:20→20:33)
[2020-08-03] MEDS: Levothyroxine Sodium 75 MCG TAB PO SCH (05:06)
[2020-08-03] MEDS: Metoprolol Tartrate 50 MG TAB PO SCH ×2 (08:40→20:32)
[2020-08-03] MEDS: Losartan 25 MG TAB PO SCH (08:40)
[2020-08-03] MEDS: Pantoprazole 40 MG VIAL IVP SCH ×2 (08:40→20:33)
[2020-08-03] MEDS: Micafungin 100 MG in Sodium Chloride 0.9% 100 ML IVPB SCH (08:40)
[2020-08-03] MEDS: Saccharomyces boulardii 250 MG CAP PO SCH (08:40)
[2020-08-03] MEDS: Gemfibrozil 600 MG TAB PO SCH (08:40)
[2020-08-04] MEDS: Piperacillin/Tazobactam 4.5 GM in Sodium Chloride 0.9% 100 ML IVPB SCH ×4 (03:45→21:00)
[2020-08-04] MEDS: Levothyroxine Sodium 75 MCG TAB PO SCH (03:45)
[2020-08-04] MEDS: Morphine 2 MG/ML VIAL SLOW IVP PRN (03:55)
[2020-08-04] MEDS: Pantoprazole 40 MG VIAL IVP SCH ×2 (09:21→21:00)
[2020-08-04] MEDS: Saccharomyces boulardii 250 MG CAP PO SCH (09:21)
[2020-08-04] MEDS: Gemfibrozil 600 MG TAB PO SCH (09:21)
[2020-08-04] MEDS: Metoprolol Tartrate 50 MG TAB PO SCH ×2 (09:21→20:59)
[2020-08-04] MEDS: Losartan 25 MG TAB PO SCH (09:24)
[2020-08-04] MEDS: Micafungin 100 MG in Sodium Chloride 0.9% 100 ML IVPB SCH (10:51)
[2020-08-05] MEDS: Levothyroxine Sodium 75 MCG TAB PO SCH (04:14)
[2020-08-05] MEDS: Piperacillin/Tazobactam 4.5 GM in Sodium Chloride 0.9% 100 ML IVPB SCH ×3 (04:14→16:13)
[2020-08-05 06:18] LABS: #Eosinphils 0.3 thou/uL (0.0-0.7); #Lymphocytes 1.2 thou/uL (1.20-3.40); #Monocytes 0.5 thou/uL (0.11-0.59); #Neutrophils 3.1 thou/uL (1.40-6.50); %Basophils 0.9 % (0.0-1.0); %Eosinophils 4.9 % (0.0-10.0); %Lymphocytes 23.5 % (21.0-51.0); %Monocytes 10.6 % (0.0-10.0); %Neutrophils 60.1 % (42.0-75.0); Hemoglobin 8.6 g/dL (12.0-16.0); Mean Corpuscular HGB CONC 32.6 g/dL (32.0-36.0); Mean Corpuscular Hemoglobin 32.4 pg (27.0-31.0); Mean Corpuscular Volume 99.6 fL (78.0-98.0); Mean Platelet Volume 7.4 fL (7.4-10.4); Platelet Count 319 thou/uL (130-400); Red Blood Cell (RBC) Count 2.66 mill/uL (4.20-5.40); White Blood Cell (WBC) Count 5.1 thou/uL (4.8-10.8)
[2020-08-05 06:40] LABS: Anion Gap 9 mmol/L (10-20); BUN (Urea Nitrogen) 6 mg/dL (9.8-20.1); CRP (Inflammatory) 4.16 mg/dL (= or < 0.5); Calc. Creatinine Clearance 82 mL/min (70-130); Calcium 7.6 mg/dL (7.8-10.44); Carbon Dioxide 23 mmol/L (23-31); Chloride 114 mmol/L (98-107); Glucose 92 mg/dL (83-110); Potassium 3.6 mmol/L (3.5-5.1); Sodium 142 mmol/L (136-145)
[2020-08-05] MEDS: Losartan 25 MG TAB PO SCH (09:00)
[2020-08-05] MEDS: Gemfibrozil 600 MG TAB PO SCH (09:00)
[2020-08-05] MEDS: Metoprolol Tartrate 50 MG TAB PO SCH (09:00)
[2020-08-05] MEDS: Saccharomyces boulardii 250 MG CAP PO SCH (09:00)
[2020-08-05] MEDS: Pantoprazole 40 MG VIAL IVP SCH (09:00)
[2020-08-05] MEDS: Micafungin 100 MG in Sodium Chloride 0.9% 100 ML IVPB SCH (10:24)
[2020-08-05 20:09] VITALS: BP 143/81; TEMP 98.5
== END 2020-08-05 20:30 | DRG 871 ==
LOC: ERS 13:34 → ERHOLD 16:45 → IMCU/EMU 19:36 → T4-A 07-21 17:53
PROVIDERS: ADMIT Internal Medicine; ATTEND Hospitalist
PROC: 0W9G30Z Drainage of Peritoneal Cavity with Drainage Device, Percutaneous Approach (ICD-10-PCS; principal; 2020-07-19)
PROC: 02HV33Z Insertion of Infusion Device into Superior Vena Cava, Percutaneous Approach (ICD-10-PCS; 2020-07-27)
PROC: 0W9G30Z Drainage of Peritoneal Cavity with Drainage Device, Percutaneous Approach (ICD-10-PCS; 2020-07-29)
PROC: 30233N1 Transfusion of Nonautologous Red Blood Cells into Peripheral Vein, Percutaneous Approach (ICD-10-PCS; 2020-08-01)
DX: A41.52 Sepsis due to Pseudomonas (principal); R65.21 Severe sepsis with septic shock; K65.0 Generalized (acute) peritonitis; N17.0 Acute kidney failure with tubular necrosis; K57.20 Diverticulitis of large intestine with perforation and abscess without bleeding; E87.2 Acidosis; Z16.24 Resistance to multiple antibiotics; I42.9 Cardiomyopathy, unspecified; N13.6 Pyonephrosis; Z16.23 Resistance to quinolones and fluoroquinolones; D62 Acute posthemorrhagic anemia; K92.1 Melena; A41.51 Sepsis due to Escherichia coli [E. coli]; Z66 Do not resuscitate; Z20.822 Contact with and (suspected) exposure to COVID-19; E03.9 Hypothyroidism, unspecified; E83.42 Hypomagnesemia; I25.10 Atherosclerotic heart disease of native coronary artery without angina pectoris; E78.00 Pure hypercholesterolemia, unspecified; F32.9 Major depressive disorder, single episode, unspecified; E66.01 Morbid (severe) obesity due to excess calories; I48.0 Paroxysmal atrial fibrillation; E11.69 Type 2 diabetes mellitus with other specified complication; R63.0 Anorexia; A41.59 Other Gram-negative sepsis; M17.0 Bilateral primary osteoarthritis of knee; B37.9 Candidiasis, unspecified; Z90.49 Acquired absence of other specified parts of digestive tract; Z90.710 Acquired absence of both cervix and uterus; Z88.8 Allergy status to other drugs, medicaments and biological substances; Z79.84 Long term (current) use of oral hypoglycemic drugs; Z79.899 Other long term (current) drug therapy; Z68.36 Body mass index [BMI] 36.0-36.9, adult
CPT/HCPCS: 0240U; 36415; 36416; 36430; 36569; 49020; 49060; 51701; 71045; 71260; 74018; 74176; 74177; 77002; 77012; 80048; 80053; 80061; 80076; 80162; 81003; 81015; 82550; 82553; 83036; 83605; 83690; 83735; 83880; 84443; 84484; 85025; 85060; 85610; 85652; 85730; 86140; 86850; 86900; 86901; 87040; 87070; 87077; 87086; 87186; 87205; 89051; 93005; 93306; 96365; 96367; 96375; C1729; C1751; C9113; J0692; J1160; J1644; J1650; J1815; J2185; J2248; J2250; J2270; J2354; J2543; J3010; J3370; J3475; J3480; J3490; J7050; P9016; Q9967

== ENCOUNTER 2020-12-23 14:31 | Outpatient (CLI) | payer MEDICARE ==
[2020-12-24 01:42] LABS: SARS-CoV-2 PCR by NAA Not Detected (NotDetected)
== END 2020-12-23 14:32 | disposition home or self-care (01) ==
LOC: LABBT 14:31
PROVIDERS: ATTEND Internal Medicine Cardiovascular Disease
DX: Z01.812 Encounter for preprocedural laboratory examination (principal); Z20.822 Contact with and (suspected) exposure to COVID-19
CPT/HCPCS: U0003; U0005

== ENCOUNTER → 2020-12-28 | Day surgery (SDC) | payer MEDICARE ==
[2020-12-27 10:45] VITALS: BMI 32.1
[~2020-12-28] MED LIST changes: -Heparin 1,000 UNITS/ML VIAL ONE; +PROPOFOL 20 ML ONE
== END ==
LOC: CCL 10:03
PROVIDERS: ATTEND Internal Medicine Cardiovascular Disease
PROC: B24BZZ4 Ultrasonography of Heart with Aorta, Transesophageal (ICD-10-PCS; principal; 2020-12-28)
DX: I08.1 Rheumatic disorders of both mitral and tricuspid valves (principal); I11.9 Hypertensive heart disease without heart failure; I70.0 Atherosclerosis of aorta; I48.0 Paroxysmal atrial fibrillation; I25.10 Atherosclerotic heart disease of native coronary artery without angina pectoris; E11.9 Type 2 diabetes mellitus without complications; E78.00 Pure hypercholesterolemia, unspecified; Z79.01 Long term (current) use of anticoagulants; Z79.82 Long term (current) use of aspirin; Z79.84 Long term (current) use of oral hypoglycemic drugs; Z79.899 Other long term (current) drug therapy; Z88.8 Allergy status to other drugs, medicaments and biological substances
CPT/HCPCS: 92960; 93312; J2704

== ENCOUNTER 2020-12-31 12:34 | Outpatient (CLI) | payer MEDICARE | END 2020-12-31 12:35 | disposition home or self-care (01) | LOC: CT 12:34 | PROVIDERS: ATTEND Internal Medicine Cardiovascular Disease | DX: I82.90 Acute embolism and thrombosis of unspecified vein (principal); I71.4 Abdominal aortic aneurysm, without rupture; I25.10 Atherosclerotic heart disease of native coronary artery without angina pectoris; I70.90 Unspecified atherosclerosis | CPT/HCPCS: 71250; 82565 ==

== ENCOUNTER 2021-10-20 10:34 | Outpatient (CLI) | payer OTHER | END 2021-10-20 10:35 | disposition home or self-care (01) | LOC: BICULT 10:34 | PROVIDERS: ATTEND Internal Medicine Nephrology | DX: N18.4 Chronic kidney disease, stage 4 (severe) (principal); N28.1 Cyst of kidney, acquired; N28.89 Other specified disorders of kidney and ureter | CPT/HCPCS: 76770 ==

== ENCOUNTER 2022-07-11 10:34 | Outpatient (CLI) | payer MEDICARE, OTHER ==
[2022-07-11 13:53] LABS: #Basophils 0.1 10x3/uL (0.0-0.2); #Eosinphils 0.1 10x3/uL (0.0-0.5); #Monocytes 0.7 10x3/uL (0.0-1.1); #Neutrophils 4.1 10x3/uL (1.5-8.4); %Basophils 0.7 % (0.0-2.0); %Eosinophils 0.7 % (0.0-6.0); %Lymphocytes 30.3 % (18.0-47.0); %Neutrophils 57.5 % (40.0-75.0); Hemoglobin 12.1 g/dL (12.0-15.5); Mean Corpuscular HGB CONC 32.3 g/dL (32.0-36.0); Mean Corpuscular Hemoglobin 33.2 pg (27.0-33.0); Mean Corpuscular Volume 102.7 fl (81.6-98.3); Mean Platelet Volume 11.4 fl (7.4-10.4); Platelet Count 303 10x3/uL (150-450); RBC Distribution Width 13.4 % (11.5-14.5); Red Blood Cell (RBC) Count 3.65 10x6/uL (3.90-5.03); White Blood Cell (WBC) Count 7.2 10x3/uL (3.5-10.5)
[2022-07-11 13:54] LABS: Anion Gap 17 mmol/L (10-20); BUN (Urea Nitrogen) 32 mg/dL (9.8-20.1); Calc. Creatinine Clearance 0 mL/min (70-130); Calcium 8.9 mg/dL (7.8-10.44); Carbon Dioxide 23 mmol/L (23-31); Chloride 106 mmol/L (98-107); Estimated GFR 25; Glucose 87 mg/dL (83-110); Potassium 4.9 mmol/L (3.5-5.1); Sodium 141 mmol/L (136-145)
== END 2022-07-11 10:35 | disposition home or self-care (01) ==
LOC: LABBT 10:34
PROVIDERS: ATTEND Internal Medicine Cardiovascular Disease
DX: Z01.818 Encounter for other preprocedural examination (principal); I48.91 Unspecified atrial fibrillation
CPT/HCPCS: 80048; 85025; 93005; 93010